=== PATIENT | male | born 1960 | race Caucasian/White ===

== ENCOUNTER 2021-03-17 18:19 | Emergency (ER) | payer BC ==
[~2021-03-17] VITALS: Ht 182.9 cm; Wt 111.1 kg
== END 2021-03-17 21:45 | disposition home or self-care (01) ==
LOC: ER1 18:19
DX: U07.1 COVID-19 (principal); Z23 Encounter for immunization; E11.9 Type 2 diabetes mellitus without complications; Z79.84 Long term (current) use of oral hypoglycemic drugs; Z87.442 Personal history of urinary calculi; I10 Essential (primary) hypertension; Z88.0 Allergy status to penicillin
CPT/HCPCS: 99283; M0245